=== PATIENT | female | born 1990 | race Caucasian/White ===

== ENCOUNTER 2018-01-20 20:28 | Emergency (ER) | payer BC ==
[~2018-01-20] VITALS: Ht 160 cm; Wt 59.0 kg
[~2018-01-20 20:28] MED LIST: ADDERAL20 MG ORAL
--- NOTE | 2018-01-20 21:33 | Emergency Room Report ---
History of Present Illness General Chief Complaint: Alcohol Intoxication Source: Patient, Significant Other, EMS Present Illness HPI Patient brought by EMS. She was at a restaurant and had been drinking alcohol. She ate an edible THC cookie and then started feeling nauseated and dysphoric. She started vomiting uncontrollably. No abdominal pain. No headache. No fevers. No URI symptoms. She denies any blood or coffee grounds. No melena. No menses for 6 months - she started BCP at that time. Denies dysuria. H/O ADHD on Adderall. No SI or HI. Allergies: Coded Allergies: No Known Allergies (Unverified , 01/20/18) Patient History Past Medical History: see triage record Social History: Reports: alcohol use, drug use; Denies: smoking Social History Narrative [employer] Reviewed Nursing Documentation: PMH: Agreed; PSxH: Agreed Nursing Documentation-PMH Past Medical History: No History, Except For Review of Systems All Other Systems: negative except mentioned in HPI Physical Exam Vital Signs Date Time Temp Pulse Resp B/P (MAP) Pulse Ox O2 Delivery O2 Flow Rate FiO2 01/20/18 20:22 98.2 92 16 132/78 100 Room Air 98.2 Sp02 EP Interpretation: reviewed, normal General Appearance: well appearing, no apparent distress, GCS 15 Head: normocephalic Eyes: bilateral eye PERRL, bilateral eye other ENT: moist mucus membranes Neck: supple Respiratory: lungs clear, normal breath sounds Cardiovascular #1: regular rate, rhythm Cardiovascular #2: 2+ radial (R) Gastrointestinal: normal inspection, normal bowel sounds, non tender, no mass, non-distended Genitourinary: no CVA tenderness Musculoskeletal: back normal, gait/station normal, normal range of motion Neurologic: alert, oriented x3, motor strength/tone normal, sensory intact, speech normal Psychiatric: anxious Skin: normal inspection, warm/dry Medical Decision Making Diagnostic Impression: Primary Impression: Adverse reaction to cannabis Qualified Codes: T40.7X5A - Adverse effect of cannabis (derivatives), initial encounter ER Course Patient with uncontrolled vomiting after alcohol and alleged THC. DDX: gastritis, adverse reaction to cannabis, food poisoning, , viral process amongst others. Patient will be given zofran and observed. UA will be checked. UA with + THC and amphetamines (on Adderall). Not . Improved and wants to go home. Tolerating PO now. Has friend to watch her. Patient stable for outpatient observation and treatment. Laboratory Tests Test 01/20/18 21:49 Urine Color Pale yellow Urine Appearance Cloudy Urine pH 8 (4.5-8.0) Urine Specific [place] 1.015 (1.005-1.035) Urine Protein 1+ (NEGATIVE) H Urine Glucose (UA) Negative (NEGATIVE) Urine Ketones Negative (NEGATIVE) Urine Blood Negative (NEGATIVE) Urine Nitrite Negative (NEGATIVE) Urine Bilirubin Negative (NEGATIVE) Urine Urobilinogen Normal MG/DL (0.0-1.0) Urine Leukocyte Esterase Negative (NEGATIVE) Urine RBC 0 /HPF (0 - 2) Urine WBC 2-4 /HPF (0 - 2) Urine Squamous Epithelial Cells Few /LPF (NONE/OCC) Urine Amorphous Sediment Many /LPF (NONE) H Urine Bacteria Moderate /HPF (NONE) H Urine HCG, Qualitative Negative (NEGATIVE) Urine Opiates Screen Negative (NEGATIVE) Urine Barbiturates Screen Negative (NEGATIVE) Phencyclidine (PCP) Screen Negative (NEGATIVE) Urine Amphetamines Screen Positive (NEGATIVE) H Urine Benzodiazepines Screen Negative (NEGATIVE) Urine Cocaine Screen Negative (NEGATIVE) Urine Marijuana (THC) Screen Positive (NEGATIVE) H Last Vital Signs Date Time Temp Pulse Resp B/P (MAP) Pulse Ox O2 Delivery O2 Flow Rate FiO2 01/21/18 01:12 0/0 01/21/18 01:11 98.2 16 100 Room Air 98.2 01/20/18 20:22 92 Status: improved Disposition: HOME, SELF-CARE Scripts Ondansetron Odt* (ZOFRAN ODT*) 4 Mg Tab.rapdis 4 MG BC EVERY 8 HOURS, #6 TAB 0 Refills Prov: Des Traore M.D. 01/20/18 Des Traore M.D. Jan 20, 2018 21:33
[2018-01-20] MEDS ORDERED: ONDANSETRON ODT4 MG BC (21:46)
[2018-01-20 22:01] LABS: APPEARANCE,URINE CLOUDY; BILIRUBIN, URINE NEGATIVE (NEGATIVE); COLOR,URINE PALE YELLOW; GLUCOSE, URINE (UA) NEGATIVE (NEGATIVE); KETONES,URINE NEGATIVE (NEGATIVE); LEUKOCYTE ESTERASE ,URINE NEGATIVE (NEGATIVE); NITRITE,URINE NEGATIVE (NEGATIVE); PH,URINE 8 (4.5-8.0); PROTEIN,URINE 1+ (NEGATIVE); UROBILINOGEN,URINE NORMAL MG/DL (0.0-1.0)
[2018-01-21 01:11] VITALS: BP 132/78
[2018-01-21 01:12] VITALS: BP 0/0
== END 2018-01-20 21:50 | disposition home or self-care (01) ==
LOC: EDBD 20:28 → EMR 21:00
DX: R11.10 Vomiting, unspecified (principal); T40.7X5A Adverse effect of cannabis (derivatives), initial encounter; Y92.511 Restaurant or cafe as the place of occurrence of the external cause
CPT/HCPCS: 80307; 81003; 81025; 87086; 99283